=== PATIENT | female | born 1935 | race Caucasian/White ===

== ENCOUNTER 2019-03-04 12:08 | Observation (INO) ==
[2019-03-04 12:44] LABS: URINE SOURCE CLEAN CATCH
[2019-03-04 12:49] LABS: BASO# 0.02 X1000 (0.0-0.2); BASO% 0.3 % (0.0-0.8); EOS# 0.02 X1000 (0.0-0.7); EOS% 0.3 % (0.0-10.0); HEMATOCRIT 23.1 % (37.0-47.0); HEMOGLOBIN 6.7 g/dL (12.0-16.0); IMM GRAN# 0.01 X1000 (0.0-0.04); IMM GRAN% 0.2 % (0.0-0.5); LYMPH# 0.47 X1000 (1.2-3.4); LYMPH% 7.5 % (20.5-51.1); MCV 82.8 FL (81-99); MONO# 0.32 X1000 (0.11-0.59); MONO% 5.1 % (1.7-9.3); MPV 10.5 FL (7.4-10.4); NEUT# 5.44 X1000 (1.4-6.5); NEUT% 86.6 % (42.2-75.2); PLT 309 X1000 (130-400); RBC 2.79 XMIL (4.2-5.4); RDW 16.1 % (11.5-14.5); WBC 6.28 X1000 (4.8-10.8)
[2019-03-04 12:50] LABS: LYMPHS 7 % (21-51); MONO 6 % (1-9); SEGS 87 % (42-75)
[2019-03-04 12:59] LABS: BILIRUBIN URINE NEGATIVE (NEGATIVE); BLOOD URINE NEGATIVE (NEGATIVE); COLOR YELLOW; GLUCOSE URINE NEGATIVE (NEGATIVE); KETONE URINE NEGATIVE (NEGATIVE); LEUKOCYTES URINE TRACE (NEGATIVE); NITRITE URINE NEGATIVE (NEGATIVE); PH URINE 6.5; PROTEIN URINE TRACE mg/dL (NEGATIVE); SP GRAVITY URINE 1.021; TURBIDITY URINE HAZY (CLEAR); UROBILINOGEN URINE NORMAL (NORMAL)
[2019-03-04 13:07] LABS: UR EPITHELIAL CELLS >10 /HPF (<10); URINE BACTERIA NEGATIVE /HPF; URINE WBC <10 /HPF (<10)
[2019-03-04 13:13] LABS: IRON SATURATION 62 %; TIBC 347 ug/dL; TOTAL IRON 214 ug/dL (49-151); UNBOUND IRON 133 ug/dL (112-346)
[2019-03-04 13:14] LABS: ALBUMIN 4.4 g/dL (3.5-5.0); CALCIUM 9.5 mg/dL (8.8-10.2); CREATININE 1.2 mg/dL (0.5-0.9); POTASSIUM 4.4 mmol/L (3.5-5.1); TOTAL BILIRUBIN 0.5 mg/dL (0.20-1.00); TOTAL PROTEIN 6.4 g/dL (6.3-8.3)
--- NOTE | 2019-03-04 13:46 | PROVIDER DOCUMENTATION ---
This chart was entered by Janie Parham Scribe, acting as scribe for Gardenia Peterson MD. HPI-General Adult - General Chief Complaint: Abnormal Lab[s] Stated Complaint: Abnormal Labs Time Seen by Provider: 03/04/19 12:12 Source: patient Allergies/Adverse Reactions: Patient Allergies Allergy/AdvReac Type Severity Reaction Status Date / Time No Known Allergies Allergy Verified 03/04/19 12:14 - History of Present Illness -Gen Adult Nature of Presenting Problems: Patient is an 83 y/o female presenting to the ED today c/o abnormal labs. Patient reports she went to [facility] this morning after having intermittent episodes of weakness. Patient states after a CBC, they advised her that her Hgb was low and recommended further evaluation in the ER. Patient reports she occasionally has bright red rectal bleeding which she attributes to hemorrhoids. Patient states she has previously been diagnosed with anemia 1-2 years ago and was managing this with oral iron, but reports she stopped taking the iron approximately 2 weeks ago. Patient reports she is scheduled next week for a colonoscopy and EGD. Patient reports known mitral valve regurgitation and takes Xarelto 15 mg for this. Patient denies recent injury or fall. Denies all other signs/symptoms. Onset/Duration: reports: 1 week ago Associated Symptoms: reports: weakness Similar Symptoms Previously?: No Recently seen or treated by another doctor?: Yes ([facility] this AM) Review of Systems - Adult - REVIEW OF SYSTEMS - ADULT Constitutional: denies: chills, fever Eyes: reports: no symptoms reported Ears, Nose, Mouth & Throat: reports: no symptoms reported Cardiovascular: denies: chest pain Respiratory: denies: cough, shortness of breath Gastrointestinal: denies: abdominal pain, diarrhea, rectal bleeding Genitourinary: reports: no symptoms reported Musculoskeletal: reports: no symptoms reported Integumentary: reports: no symptoms reported Neurological: reports: other (weakness) Psychiatric: reports: no symptoms reported Endocrine: reports: no symptoms reported Hematologic/Lymphatic: reports: low blood count Allergic/Immunologic: reports: no symptoms reported Past History - Adult - PAST MEDICAL HISTORY-ADULT Review of Records: reports: Old Records Reviewed, Nursing Assessment Review, Medications Reviewed, Social history reviewed & non-contributory. Major Childhood Illnesses: reports: denies history Cardiovascular: reports: other (Mitral valve regurgitation) Endocrine/Immune: reports: anemia Physical Exam-General - PHYSICAL EXAM-ADULT Initial Vital Signs Reviewed: Yes - CONSTITUTIONAL General Appearance: appears well, alert, no apparent distress - EYES Eyes: PERRL/EOMI, pale conjunctivae - HEAD, EARS, NOSE, MOUTH & THROAT HENMT: moist mucous membranes, normal ENT inspection - NECK Neck: non-tender, full range of motion, supple - RESPIRATORY Respiratory: lungs clear, normal breath sounds, no respiratory distress, no accessory muscle use - CARDIOVASCULAR Cardiovascular: regular rate, rhythm, no edema, no gallop, systolic murmur - GASTROINTESTINAL (ABDOMEN) Abdominal Exam: non tender, soft - MUSCULOSKELETAL Back Exam: normal inspection, no vertebral tenderness Extremity: normal range of motion, non-tender, normal gait, normal inspection - SKIN Integumentary: normal turgor, warm/dry, pallor - NEUROLOGIC Neurologic: grossly normal - PSYCHIATRIC Psych/Mental Status: normal mood/affect, normal thought content, normal thought process, oriented x 3 Progress - PLAN OF CARE/RESULTS Progress/Plan/Lab Results: Vital Signs - 8 hr 03/04/19 12:11 Temperature 98 F Pulse Rate 71 Respiratory Rate 18 O2 Sat by Pulse Oximetry 100 Orders Category Date Time Status Cardiac Monitoring DIRECTED Care 03/04/19 12:16 Active Nursing- Obtain EKG ONCE Care 03/04/19 12:15 Active Saline Loc NOW Care 03/04/19 12:17 Active CBC WITH DIFF [HEME] Stat Lab 03/04/19 12:15 Ordered COMPREHENSIVE METABOLIC PANEL [CHEM] Stat Lab 03/04/19 12:15 Uncollected FERRITIN Stat Lab 03/04/19 12:22 Ordered FOLATE Stat Lab 03/04/19 12:15 Uncollected TYPE & SCREEN [BBK] Stat Lab 03/04/19 12:15 Uncollected UIBC W TOTAL IRON [CHEM] Stat Lab 03/04/19 12:15 Ordered URINALYSIS W/POSS RFLX CULT [URINALYSIS] Stat Lab 03/04/19 12:15 Uncollected VITAMIN B12 Stat Lab 03/04/19 12:22 Uncollected EKG [EKG] Stat Ther 03/04/19 12:15 Ordered Patient H/H 6.7/27.8. Tranfusion and PRBCs ordered. spoke to patient and her son Dr Hsu and they voiced understanding. He is in the process of getting her an EGD and Colonoscopy done next week with Dr Valdes with GI. She is on Xarelto but has not noticed any blood loss in BM. Iron level is high. Unknown cause for anemia. Will need transfusion. Spoke to patient about OBS admission as this will be more comfortable for her rather than staying in the ED. They agree. Spoke to Dr Bundy oncology social work for hospitalist who accepted patient for admission. Dr Bundy to put admission orders in and will see patient in the ED. Result Diagrams: 03/04/19 12:30 03/04/19 12:30 - CONSULTS/PCP/HOSPITALIST Notification #1 *Consult/PCP/Hospitalist*: Dr Bundy Time Discussed: 14:04 Consult Disposition: Will see in ED, Admit Departure - Departure Date of Disposition Decision: 03/04/19 Time of Disposition Decision: 14:06 DIAGNOSIS: Anemia Disposition: ADMITTED INPATIENT 09 Certified Medical Emergency: Emergent Condition: Critical Referrals and Follow-Ups: Sd Hsu MD [Primary Care Provider] - - Critical Care Note This patient required my direct & personal management of CC.: Yes Total Time (mins): 35 Critical Care Statement: This patient required my direct personal management to treat or rule out processes, the absence of which, could potentiallly result in sudden, clinically significant life or limb threatening deterioration. Attestation - Physician/ DENISA Attestation Patient care was provided by Advanced Practice Provider:: No The physician spent face to face time with patient:: Yes Advanced Practice Provider documentation review:: Supervising physician onsite and consulted in the evaluation and care of this patient. The physician did have a face to face encounter with the patient. This chart was documented by the indicated scribe, (Janie Parham, Aldo) and accurately reflects the services I performed and decisions made by me, Gardenia Peterson MD, as attested by the provider's signature.
--- NOTE | 2019-03-04 14:07 | EKG Report ---
Test Performed on : 03/04/2019 12:47:10 PM Test Reason : ANEMIA WEAKNESS Blood Pressure : / mmHG Vent. Rate : 082 BPM Atrial Rate : 156 BPM P-R Int : 000 ms QRS Dur : 098 ms QT Int : 400 ms P-R-T Axes : 000 041 -15 degrees QTc Int : 467 ms Atrial fibrillation. Moderate voltage criteria for LVH, may be normal variant Nonspecific ST abnormality Abnormal ECG No previous ECGs available Confirmed by Oscar Mckeon MD ([id number]), desk editor Ayana Chan ([id number]) on 04/07/2019 12:38:14 PM
[2019-03-04] MEDS ORDERED: NS 1,000 ML IV ONE (15:13)
[2019-03-04] MEDS ORDERED: NS 1,000 ML ONE (15:13)
[2019-03-04] MEDS ORDERED: APRESOLINE IV PRN (15:42)
--- NOTE | 2019-03-04 16:16 | HISTORY AND PHYSICAL ---
PRIMARY CARE PHYSICIAN: Dr. Sd Hsu. CHIEF COMPLAINT: Increased weakness and shortness of breath with exertion, that progressively worsened. Went to a Med/Surg walk-in clinic this morning. Laboratory data showed a low hemoglobin and hematocrit and was sent to the ER for evaluation. HISTORY OF PRESENTING ILLNESS: This is an 83-year-old female who presents to [facility] ER with complaints of increased weakness, fatigue, shortness of breath with exertion that has progressively worsened. Had gone to Med/Surg walk-in clinic today to have some labs drawn and they came back with a hemoglobin and hematocrit that was low, so they sent her to the emergency room for evaluation. She states she has had a history of some iron deficiency anemia. She stopped her iron two weeks ago. She has noted some rectal bleeding occasionally but equated that to hemorrhoids that she has. She is actually scheduled with Dr. Hutson next week for GI to have an outpatient EGD and colonoscopy. Her workup today showed hemoglobin and hematocrit of 6.7 and 23.1. Her iron level was 214. Her vitamin B12 level was 1427. So, she will be admitted for further evaluation and treatment and received two units of packed red blood cells. PAST MEDICAL HISTORY: Iron deficiency anemia, mitral valve regurgitation, atrial fibrillation, and an AL. PAST SURGICAL HISTORY: Cataract surgery, hysterectomy, hernia repair, and bilateral hand surgery. FAMILY HISTORY: Reviewed and noncontributory. SOCIAL HISTORY: She currently lives alone. Denies any tobacco, alcohol or illicit drug use. ALLERGIES: She has no known drug allergies. HOME MEDICATIONS: We will hold her aspirin 81 mg p.o. daily and her Xarelto 15 mg p.o. at bedtime. We will continue her Coreg 12.5 mg p.o. daily, Colace 100 mg p.o. daily, glucosamine 1000 mg p.o. daily, losartan/HCT 100/25 one p.o. daily, potassium 10 mEq p.o. daily and simvastatin 40 mg p.o. at bedtime. LABORATORY DATA: Showed a white blood cell count of 6.28, hemoglobin 6.7, hematocrit 23.1, platelets 309,000. Sodium 136, potassium 4.4, chloride 101, CO2 19, BUN of 34, creatinine 1.2, glucose 156. Iron 214, TIBC 347, B12 1427. Urinalysis was negative. EKG showed atrial fibrillation at 82. REVIEW OF SYSTEMS: She denied any fever, chills, blurred vision, or dizziness. She had increased weakness, increased fatigue, and shortness of breath with exertion. Denied any chest pain or coughing. Denied any abdominal pain, constipation, diarrhea, burning or hurting with urination. PHYSICAL EXAMINATION: VITAL SIGNS: On arrival, she had a temperature of 98 degrees, pulse 71, respirations 18, blood pressure was 148/91. Currently, blood pressure has gone up to 199/102. GENERAL: This is an 83-year-old female who is lying in the bed. Answers questions appropriately. HEENT: Normocephalic, atraumatic. Normal ENT inspection. Oropharynx and nares are clear. EYES: Pupils are equal, round, and reactive to light and accommodation. Extraocular movements are intact. NECK: Normal inspection. Normal range of motion. LUNGS: Clear to auscultation bilaterally with equal lung expansion and chest wall movement. HEART: Irregular rate and rhythm but no murmurs, rubs, or gallops. ABDOMEN: Soft, nontender, nondistended. Bowel sounds are present x4 quadrants. MUSCULOSKELETAL: She has 5/5 strength x4 extremities. NEUROLOGICAL: The cranial nerves II-XII appear grossly intact. ASSESSMENT: 1. Symptomatic anemia. 2. Atrial fibrillation, rate controlled. Aware. 3. Generalized weakness with fatigue. PLAN: She will be admitted to the medical unit. We will transfuse two units of packed red blood cells. Placed on telemetry. Healthy heart diet. Will apply SCDs for DVT prophylaxis. Again, we will hold her aspirin and Xarelto and we will give her normal saline at 50 mL an hour. We will recheck a CBC and BMP in the a.m. At this time we are going to keep her appointment for outpatient colonoscopy and EGD next week with Dr. Hutson and further orders after seen by attending. Dictated by BO William for Nile Bundy MD cc: BO William MD [facility], MD
[2019-03-04] MEDS ORDERED: TYLENOL PO PRN (16:40)
[2019-03-04] MEDS ORDERED: NS 1,000 ML IV SCH (16:40)
[2019-03-04] MEDS ORDERED: ZOFRAN IV PRN (16:40)
--- NOTE | 2019-03-04 16:55 | HISTORY AND PHYSICAL ---
ADDENDUM REPORT: The patient seen and examined by myself. Full note dictated and discussed with nurse practitioner. Patient presented to the hospital noting that she has been tired and fatigued. She had her hemoglobin and hematocrit checked and it was low. She does have a history of anemia, as well as hemorrhoids. She has had some blood in her stool with thought this was hemorrhoidal bleeding. We are going to admit her to the hospital, type and cross and transfuse 2 units. She does have an outpatient GI workup already scheduled. cc: Nile Bundy MD
[2019-03-04] MEDS ORDERED: ZOCOR PO SCH (21:00)
[2019-03-05 06:25] LABS: BASO# 0.02 X1000 (0.0-0.2); BASO% 0.3 % (0.0-0.8); EOS# 0.03 X1000 (0.0-0.7); EOS% 0.5 % (0.0-10.0); HEMATOCRIT 27.8 % (37.0-47.0); HEMOGLOBIN 8.5 g/dL (12.0-16.0); IMM GRAN# 0.02 X1000 (0.0-0.04); IMM GRAN% 0.3 % (0.0-0.5); LYMPH# 0.67 X1000 (1.2-3.4); LYMPH% 10.2 % (20.5-51.1); MCH 25.3 PG (27-31); MCHC 30.6 g/dL (33-37); MCV 82.7 FL (81-99); MONO# 0.77 X1000 (0.11-0.59); MONO% 11.7 % (1.7-9.3); MPV 10.6 FL (7.4-10.4); NEUT# 5.05 X1000 (1.4-6.5); PLT 258 X1000 (130-400); RBC 3.36 XMIL (4.2-5.4); RDW 15.7 % (11.5-14.5); WBC 6.56 X1000 (4.8-10.8)
[2019-03-05 06:36] LABS: CALCIUM 9.1 mg/dL (8.8-10.2); POTASSIUM 3.5 mmol/L (3.5-5.1)
[2019-03-05 08:17] VITALS: BP 163/76
[2019-03-05] MEDS ORDERED: KLOR-CON PO SCH (09:00)
[2019-03-05] MEDS ORDERED: COLACE PO SCH (09:00)
[2019-03-05] MEDS ORDERED: COZAAR PO SCH (09:00)
[2019-03-05] MEDS ORDERED: GLUCOSAMINE 500 MG/CHONDROITIN 400 MG PO SCH (09:00)
[2019-03-05] MEDS ORDERED: HYDROCHLOROTHIAZIDE PO SCH (09:00)
[2019-03-05] MEDS ORDERED: COREG PO SCH (09:00)
--- NOTE | 2019-03-05 11:24 | DISCHARGE SUMMARY ---
ADMISSION DATE: 03/04/2019 DISCHARGE DATE: 03/05/2019 ADMISSION DIAGNOSES: 1. Symptomatic anemia. 2. Atrial fibrillation, rate controlled. 3. Generalized weakness and fatigue. DISCHARGE DIAGNOSES: 1. Symptomatic anemia, resolved. 2. Atrial fibrillation, rate controlled. 3. Generalized weakness with fatigue, improved. SUMMARY OF FINDINGS: This is an 83-year-old female who presented to the ER with complaints of increased weakness, fatigue, and shortness of breath with exertion that had progressively worsened. Had gone to the Medical/Surgical walk-in clinic to have labs drawn, and when they came back, her hemoglobin and hematocrit were low, so they sent her to the emergency room for evaluation. She has a history of iron-deficiency anemia, but states she stopped her iron a couple of weeks ago. Had noted some rectal bleeding occasionally, but attributed that to the hemorrhoids that she has. She already is scheduled for a GI workup of an EGD and colonoscopy this coming 03/07/2019. When she arrived to the emergency room, her hemoglobin and hematocrit were 6.7 and 23.1, so we administered 2 units of blood. It came up to 8.5 and 27.8 this morning. She did have a little elevation in her blood pressure in the emergency room, got as high as 199/102. That is improved this morning down to 163/76, so it is felt that she can safely be discharged home. We will be holding her aspirin and Xarelto until she is seen by GI. DISCHARGE MEDICATIONS: Include Coreg 12.5 mg p.o. daily, Colace 100 mg p.o. daily, glucosamine 1000 mg p.o. daily, losartan/hydrochlorothiazide 100/25 one p.o. daily, potassium 10 mEq p.o. daily, and simvastatin 40 mg p.o. at bedtime. FOLLOWUP: She will follow up with her primary care physician in the next 1 to 2 weeks, and she will keep her GI appointment for this 03/07/2019 for an EGD and colonoscopy outpatient. TIME SPENT: A 35-minute discharge. Dictated by BO William for Nile Bundy MD cc: BO William MD [facility]
--- NOTE | 2019-03-05 13:59 | DISCHARGE SUMMARY ---
ADMISSION DATE: 03/04/2019 DISCHARGE DATE: 03/05/2019 HISTORY/HOSPITAL COURSE: The patient presented to the hospital with anemia with a hemoglobin of 6. She was typed and crossed and transfused 2 units. Her hemoglobin and hematocrit have improved to 8 and 27. Did have some hemorrhoidal bleeding. This certainly could be the cause. It is chronic. She has an outpatient endoscopy workup scheduled. Certainly would stop her aspirin, probably would continue Xarelto given her atrial fibrillation and risk of clotting. cc: Nile Bundy MD
== END 2019-03-05 10:24 | disposition home or self-care (01) ==
LOC: P.MEDSURG 12:08 → P.ED 12:08 → P.MEDSURG 18:25
PROVIDERS: ATTEND Family Medicine